=== PATIENT | male | born 1985 | race Caucasian/White ===

== ENCOUNTER → 2025-05-28 | Outpatient (REF) | LOC: M CAHLAB 17:46 | DX: Z02.83 Encounter for blood-alcohol and blood-drug test (principal) ==

== ENCOUNTER 2025-09-16 13:19 | Emergency (ER) | payer BC ==
[~2025-09-16] VITALS: Ht 170.2 cm; Wt 125.0 kg
[2025-09-16] MEDS ORDERED: LOSA100T46 PO (13:57)
[2025-09-16] MEDS ORDERED: AMLO1TAB25 PO (13:57)
[2025-09-16] MEDS ORDERED: ASPI81CH33 PO (13:57)
[2025-09-16 14:05] LABS: PLATELET COUNT, AUTOMATED 267 10^3/uL (150-450)
[2025-09-16] MEDS: LOSARTAN 50 MG TABLET PO SCH (14:09)
[2025-09-16 14:28] LABS: AMPHETAMINES LEVEL URINE NEGATIVE (NEGATIVE); BARBITURATES URINE NEGATIVE (NEGATIVE); BENZODIAZEPINES URINE NEGATIVE (NEGATIVE); CANNABINOIDS URINE NEGATIVE (NEGATIVE); COCAINE METABOLITE URINE NEGATIVE (NEGATIVE); METHADONE URINE NEGATIVE (NEGATIVE); OPIATES URINE NEGATIVE (NEGATIVE); PHENCYCLIDINE URINE NEGATIVE (NEGATIVE)
[2025-09-16 14:32] LABS: ETHYL ALCOHOL (ETHANOL) 0.265 % (0.000-0.010)
[2025-09-16 14:33] LABS: ALT/SGPT 119 U/L (7.0-40); AST/SGOT 67 U/L (<34); CALCIUM LEVEL 8.9 MG/DL (8.5-10.1); CARBON DIOXIDE LEVEL 27 MMOL/L (20-31); CHLORIDE LEVEL 102 MMOL/L (98-107); CREATININE FOR GFR 0.86 MG/DL (0.70-1.30); GLOMERULAR FILTRATION RATE > 90.0 (>60); POTASSIUM SERUM 4.1 MMOL/L (3.5-5.1); SALICYLATE LEVEL < 3.0 MG/DL (<30); SODIUM LEVEL 142 MMOL/L (136-145)
[2025-09-16] MEDS: THIAMINE 100 MG TAB PO SCH (16:16)
[2025-09-16] MEDS: MULTIVITAMINS/MINERALS THERAP 1 TAB PO SCH (16:16)
[2025-09-16] MEDS: FOLIC ACID 1 MG TAB PO SCH (16:17)
[2025-09-16 19:51] VITALS: BP 142/94; TEMP 98.5; O2SAT 98
[2025-09-16] MEDS ORDERED: amLODIPine 10 MG TAB PO SCH (21:00)
[2025-09-17] MEDS ORDERED: ASPIRIN 325 MG TAB PO SCH (09:00)
== END 2025-09-16 20:43 | disposition home or self-care (01) ==
LOC: M ED 13:19
DX: F43.0 Acute stress reaction (principal); F10.10 Alcohol abuse, uncomplicated; F32.A Depression, unspecified; I10 Essential (primary) hypertension; Y90.8 Blood alcohol level of 240 mg/100 ml or more